=== PATIENT | female | born 1995 | race Caucasian/White ===

== ENCOUNTER 2021-11-17 04:34 | Day surgery (SDC) | payer OTHER ==
[2021-11-15 11:14] VITALS: BMI 37.1
[2021-11-17 14:45] VITALS: BP 110/60; PULSE 58; TEMP 98
== END 2021-11-17 14:45 | disposition home or self-care (01) ==
LOC: JASU-ENDO 04:34
PROVIDERS: ATTEND Internal Medicine Gastroenterology
PROC: 0DJD8ZZ Inspection of Lower Intestinal Tract, Via Natural or Artificial Opening Endoscopic (ICD-10-PCS; principal; 2021-11-17 11:30)
DX: K62.5 Hemorrhage of anus and rectum (principal); R10.9 Unspecified abdominal pain
CPT/HCPCS: 81025